=== PATIENT | female | born 1970 | race Asian ===

== ENCOUNTER 2022-10-19 16:22 | Emergency (ER) | payer MEDICAID ==
[~2022-10-19] VITALS: Ht 177.8 cm; Wt 80.7 kg
[2022-10-19 16:34] VITALS: BP 158/98
[2022-10-19] MEDS ORDERED: triamcinolone acetonide 40mg/ml inj IM ONE (20:40)
== END 2022-10-19 21:13 | disposition home or self-care (01) ==
LOC: ER 16:25
DX: R21 Rash and other nonspecific skin eruption (principal); L29.9 Pruritus, unspecified; Z88.8 Allergy status to other drugs, medicaments and biological substances
CPT/HCPCS: 96372; 99283; J3301